=== PATIENT | female | born 1985 | race Caucasian/White ===

== ENCOUNTER 2020-02-27 03:40 | Emergency (ER) | payer MEDICAID ==
[~2020-02-27] VITALS: Ht 165.1 cm; Wt 102.2 kg
[~2020-02-27 03:40] MED LIST: FERR-43 PO; MULT-1146 PO
[2020-02-27] MEDS ORDERED: KETOROLAC 30MG/ML VIAL IV STA (04:43)
[2020-02-27] MEDS ORDERED: ONDANSETRON HCL 4MG/2ML INJ IV STA (04:43)
[2020-02-27] MEDS ORDERED: SODIUM CHLORIDE 0.9% 1,000 ML IV ONE (04:45)
[2020-02-27 05:29] LABS: BASOPHILS % 0.6 % (0.0-2.0); EOSINOPHILS % 0.8 % (0.0-5.0); HEMOGLOBIN. 9.5 g/dL (12.0-16.0); LYMPHOCYTES % 21.8 % (20.0-50.0); MEAN CORPUSCULAR VOLUME 62.4 fL (81.0-99.0); MEAN PLATELET VOLUME 8.9 fl (7.4-10.4); MONOCYTES % 7.5 % (2.0-8.0); NEUTROPHILS % 69.3 % (40.0-76.0); PLATELET 449 x1000/uL (130-400); RED BLOOD CELL COUNT 4.96 mill/uL (4.2-5.4); RED CELL DISTRIBUTION WIDTH 19.1 % (11.6-14.6)
[2020-02-27 05:35] LABS: PROTHROMBIN TIME 10.2 sec (9.6-11.0)
[2020-02-27 05:35] LABS: CLARITY URINE TURBID (CLEAR); COLOR URINE YELLOW (YELLOW); KETONES URINE NEGATIVE (NEGATIVE); LEUKOCYTE ESTERASE URINE 1+ (NEGATIVE); NITRITE URINE NEGATIVE (NEGATIVE); OCCULT BLOOD URINE NEGATIVE (NEGATIVE); PH URINE 5.5 (4.5-8.0); PROTEIN URINE NEGATIVE (NEGATIVE); SPECIFIC GRAVITY URINE 1.014 (1.005-1.030); UROBILINOGEN URINE 0.2 E.U./dL (0.2-1.0)
[2020-02-27 05:38] LABS: CHLORIDE 106 mEq/L (98-107)
[2020-02-27 06:39] LABS: PLATELET ESTIMATE INCREASED
[2020-02-27 06:56] VITALS: BP 121/69
== END 2020-02-27 06:58 | disposition home or self-care (01) ==
LOC: ER 03:49
DX: N30.00 Acute cystitis without hematuria (principal)
CPT/HCPCS: 36415; 74176; 80053; 81003; 81025; 83690; 85025; 85610; 93005; 96361; 96374; 96375; 99285; J1885; J2405; J7030